=== PATIENT | female | born 1955 | race Caucasian/White ===

== ENCOUNTER → 2021-10-26 | Day surgery (SDC) | payer BC | LOC: MAMMO 07:08 | PROVIDERS: ATTEND Emergency Medicine | PROC: 0HBT3ZX Excision of Right Breast, Percutaneous Approach, Diagnostic (ICD-10-PCS; principal; 2021-10-26) | DX: N60.31 Fibrosclerosis of right breast (principal); R92.0 Mammographic microcalcification found on diagnostic imaging of breast | CPT/HCPCS: 19081; 76098; 88305; 88313; 88342 ==